=== PATIENT | female | born 1995 | race American Indian/Alaskan Native ===

== ENCOUNTER 2017-08-16 12:08 | Inpatient (IN) | payer MEDICAID ==
[2017-08-16] MEDS ORDERED: LACTATED RINGERS 1,000 ML ONE (13:10)
[2017-08-16] MEDS ORDERED: TYLENOL PO PRN (13:11)
--- NOTE | 2017-08-16 13:22 | History and Physical Report ---
History of Present Illness Date of examination: 08/16/17 Date of admission: 08/16/17 12:08 Chief complaint: Oligohydramnios History of present illness: Patient is a 21 year old female , LMP 01/04/17, EDC 10/11/17 who is a 32 weeks gestation. She was sent from [facility] for oligohydramnios. She is a [facility] patient and has been having weekly NST for morbid obesity. Today, she was there for an NST and BPP which was 6/10 (-2 for KATINA and -2 for NST). She denies any contractions or fluid leakage. She reports good movement. Past History Past Medical History: other (Morbid Obesity) Past Surgical History: no surgical history Social history: no significant social history - Obstetrical History Expected Date of Delivery: 10/11/17 Actual Gestation: 32 Week(s) 0 Day(s) : 1 Para: 0 Medications and Allergies Allergies Allergy/AdvReac Type Severity Reaction Status Date / Time No Known Allergies Allergy Unverified 08/16/17 13:14 - Vital Signs Vital signs: Vital Signs Pulse BP 103 H 127/76 08/16/17 12:32 08/16/17 12:32 Temp Pulse Resp BP Pulse Ox 103 H 127/76 08/16/17 12:32 08/16/17 12:32 - Physical Exam Cardiovascular: Normal S1, Normal S2 Lungs: Positive: Clear to auscultation Vulva: both: normal Deep Tendon Reflex Grade: Normal +2 - Obstetrical FHR: category 1 Uterine Contraction Monitor Mode: External Results All other labs normal. Assessment and Plan - Patient Problems (1) 32 weeks gestation of Current Visit: Yes Status: Acute (2) Oligohydramnios antepartum Current Visit: Yes Status: Acute Plan to address problem: Admit to Floor. and toco mionitoring. Routine labs. IV fluid. Celestone for FLM. BPP tomorrow (3) Morbid obesity due to excess calories Current Visit: Yes Status: Acute
[2017-08-16] MEDS: LACTATED RINGERS 1,000 ML IV SCH (14:27)
[2017-08-16] MEDS: CELESTONE SOLUSPAN IM SCH (15:03)
--- NOTE | 2017-08-17 09:25 | Progress Note ---
Assessment and Plan - Patient Problems (1) 32 weeks gestation of Current Visit: Yes Status: Acute (2) Oligohydramnios antepartum Current Visit: Yes Status: Acute Plan to address problem: Continue and toco monitoring. Continue IV fluid. Celestone for FLM started. BPP today. (3) Morbid obesity due to excess calories Current Visit: Yes Status: Acute Subjective - Subjective Date of service: 08/17/17 Principal diagnosis: Oligohydromnios Interval history: Patient is a 21 year old female , LMP 01/04/17, EDC 10/11/17 who is a 32 weeks and 1 day gestation. She was sent from [facility] yesterday for oligohydramnios. She is a [facility] patient and has been having weekly NST for morbid obesity. Today, she was there for an NST and BPP which was 6/10 (-2 for KATINA and -2 for NST). She denies any contractions or fluid leakage. She reports good movement. She recieved celestone dose #1 yesterday and she is scheduled for a repeat BPP today. Objective - Vital Signs Vital Signs: Vital Signs - 12hr 08/17/17 08/17/17 07:48 07:52 Temperature 97.7 F Pulse Rate 80 94 H Respiratory 20 Rate Blood Pressure 108/53 Blood Pressure 108/53 [Right] - Exam Cardiovascular: Normal S1, Normal S2 Lungs: Clear to auscultation Vulva: both: normal FHR: category 1 Uterine Contraction Monitor Mode: External Uterine Contraction Pattern: Absent
[2017-08-17] MEDS: LACTATED RINGERS 1,000 ML IV SCH ×2 (09:42→19:58)
[2017-08-17] MEDS ORDERED: PRENATAL VITAMIN PO SCH (10:00)
[2017-08-17] MEDS: CELESTONE SOLUSPAN IM SCH (14:48)
--- NOTE | 2017-08-17 18:22 | Ultrasound Report ---
FINAL REPORT EXAM: US OB BPP WO NON-STRESS HISTORY: oligohydramnios TECHNIQUE: Obstetrical sonographic imaging was performed Comparison: None FINDINGS: Images demonstrate single live intrauterine gestation in vertex presentation. heart rate measures 147 beats per minute. Largest single in the amniotic fluid pocket measures 3.64 centimeters. Biophysical profile score 8/8. IMPRESSION: Biophysical profile score 8/8.
[2017-08-17 19:33] VITALS: BP 123/64
--- NOTE | 2017-08-17 21:00 | Ultrasound Report ---
FINAL REPORT EXAM: US OB LIMITED HISTORY: KATINA TECHNIQUE: Obstetrical sonographic imaging FINDINGS: Single live intrauterine gestation in cephalic presentation. heart rate measures 158 beats per minute. Anterior grade 1 placenta. Calculated KATINA 7.3 centimeters. IMPRESSION: Single live intrauterine gestation in cephalic presentation with anterior grade 1 placenta. heart rate 158 beats per minute. Lowest normal calculated KATINA 7.3 centimeters - borderline oligohydramnios. Findings are called to the referring clinician on 08/17/2017 at 2015 hours and discussed with Carmela Merritt RN.
--- NOTE | 2017-08-17 21:02 | Discharge Summary ---
Providers - Providers Date of Admission: 08/16/17 12:08 Date of discharge: 08/17/17 Attending physician: GABE WAGNER MD Primary care physician: LUCILA LISA Hospitalization Reason for admission: IUP - , observation, other (IUP @ 32 0/7 weeks) Discharge diagnosis: other (IUP @ 32 1/7 weeks) Pertinent studies: Repeat BPP 8/8 with KATINA 7.3 Hospital course: Patient is a 21 year old black female , LMP 01/04/17, EDC 10/11/17 who is at 32 1/7weeks gestation. She was sent from [facility] yesterday for oligohydramnios ( KATINA 5.0). She is a [facility] patient and has been having weekly NST's for morbid obesity. Her BPP was 6/10 (-2 for KATINA and -2 for NST) yesterday. She denies any contractions or fluid leakage and reports good movement. She received Celestone x2 doses and IV hydration, and her repeat BPP today was 8/8 with KATINA 7.3 She will therefore be discharged to home today in good condition, with plans to follow up with [facility] on Sunday August 20, 2017. Condition at discharge: Good Disposition: DC-01 TO HOME OR SELFCARE Plan - Provider Discharge Summary Activity: routine, no sex for 6 weeks, no heavy lifting 4 weeks, no strenuous exercise Diet: routine Instructions: routine Additional instructions: [] Smoking cessation referral if applicable(refer to patient education folder for contact #) [] Refer to [facility] Booklet Call your doctor immediately for: * Fever > 100.5 * Heavy vaginal bleeding ( >1 pad per hour) * Severe persistent headache * Shortness of breath * Reddened, hot, painful area to leg or breast * Drainage or odor from incision. * Keep incision clean and dry at all times and follow doctor's instructions regarding bathing/showering - Follow up plan Follow up: LUCILA LISA MD [Primary Care Provider] - 7 Days GABE WAGNER MD [Staff Physician] - 7 Days ROBERTA LITTLE MD [Staff Physician] - 3 Days
== END 2017-08-17 21:47 | disposition home or self-care (01) | DRG 782 ==
LOC: LD 12:08 → OBSVTOIN 12:08
PROVIDERS: ADMIT Obstetrics & Gynecology; ATTEND Obstetrics & Gynecology
DX: O41.03X0 Oligohydramnios, third trimester, not applicable or unspecified (principal); O99.213 Obesity complicating pregnancy, third trimester; Z3A.32 32 weeks gestation of pregnancy; E66.01 Morbid (severe) obesity due to excess calories; Z68.42 Body mass index [BMI] 45.0-49.9, adult
CPT/HCPCS: 59025; 76815; 76819; 96360; 96361; 96372; G0378; G0379; J0702; J7120

== ENCOUNTER 2017-09-06 13:12 | Outpatient (CLI) | payer MEDICAID ==
[2017-09-06 13:35] VITALS: BP 125/71
[2017-09-06] MEDS ORDERED: LACTATED RINGERS 500 ML IV ONE (13:44)
--- NOTE | 2017-09-06 16:40 | Ultrasound Report ---
FINAL REPORT EXAM: US OB LIMITED HISTORY: mayte TECHNIQUE: Transabdominal OB ultrasound. PRIORS: None currently available. FINDINGS: Single intrauterine . heart rate: 156 BPM. Amniotic fluid index: 13.1 cm. Within normal limits. IMPRESSION: Single live intrauterine .
--- NOTE | 2017-09-06 16:42 | Ultrasound Report ---
FINAL REPORT EXAM: US OB BPP WO NON-STRESS HISTORY: well being TECHNIQUE: Biophysical profile PRIORS: Biophysical profile August 17, 2017. FINDINGS: heart rate: 156 BPM Breathin Gross Body Movements: 2 Tone: 2 Qualitative AFV: 2 IMPRESSION: Biophysical profile score 8/8.
== END 2017-09-06 16:17 | disposition home or self-care (01) ==
LOC: TRG 13:12
PROVIDERS: ATTEND Obstetrics & Gynecology
DX: O47.03 False labor before 37 completed weeks of gestation, third trimester (principal); Z3A.35 35 weeks gestation of pregnancy
CPT/HCPCS: 59025; 76815; 76819; J7120

== ENCOUNTER 2017-09-13 16:55 | Inpatient (IN) | payer MEDICAID ==
[2017-09-13] MEDS ORDERED: ZOFRAN IV PRN (18:00)
[2017-09-13] MEDS ORDERED: STADOL IV PRN (18:00)
[2017-09-13] MEDS ORDERED: XYLOCAINE 2% INFILTRATI ONE (18:00)
[2017-09-13] MEDS ORDERED: PITOCin/NS 20 UNIT/1000ML DRIP 20 UNITS/1,000 ML BAG IV SCH (18:00)
[2017-09-13] MEDS ORDERED: POLYCILLIN/NS 2 GM/100 ML 2 GM/100 ML BAG IV ONE (18:00)
[2017-09-13] MEDS ORDERED: MINERAL OIL PO PRN (18:00)
[2017-09-13] MEDS ORDERED: BRETHINE IVP PRN (18:00)
[2017-09-13] MEDS ORDERED: CERVIDIL VG ONE (18:00)
[2017-09-13] MEDS ORDERED: ePHEDrine SULFATE IV PRN (18:00)
[2017-09-13] MEDS ORDERED: NARCAN 0.4 MG/1 ML IV PRN (18:00)
[2017-09-13] MEDS ORDERED: BRETHINE SUB-Q PRN (18:00)
--- NOTE | 2017-09-13 18:09 | History and Physical Report ---
History of Present Illness Date of examination: 09/13/17 Chief complaint: Presents from [facility] with a recommendation for induction of labor due to a non- reactive NST. History of present illness: Early entry to care, co-managed with [facility] due to morbid obesity. course complicated by a UTI, Vitamin D Deficiency,and Anemia. Past History Past Medical History: no pertinent history Past Surgical History: no surgical history Family/Genetic History: none Social history: no significant social history, single - Obstetrical History Expected Date of Delivery: 10/11/17 Actual Gestation: 36 Week(s) 0 Day(s) : 1 Medications and Allergies Allergies Allergy/AdvReac Type Severity Reaction Status Date / Time No Known Allergies Allergy Unverified 08/16/17 13:14 Home Medications Medication Instructions Recorded Confirmed Last Taken Type No Known Home Medications [No 08/16/17 09/13/17 Unknown History Reported Home Medications] Review of Systems All systems: negative - Vital Signs Vital signs: Vital Signs Pulse BP 87 132/60 09/13/17 17:16 09/13/17 17:16 Temp Pulse Resp BP Pulse Ox 98.7 F 74 18 127/58 09/13/17 17:17 09/13/17 17:48 09/13/17 17:17 09/13/17 17:48 - Physical Exam Breasts: Positive: normal Cardiovascular: Regular rate Lungs: Positive: Clear to auscultation, Normal air movement Abdomen: Positive: normal appearance, soft, normal bowel sounds Genitourinary (Female): Positive: normal external genitalia, normal perenium Uterus: Positive: enlarged Anus/Rectum: Positive: normal perianal skin - Obstetrical FHR: category 1 Uterine Contraction Monitor Mode: External Cervical Dilatation: 0 Uterine Contraction Pattern: Absent Uterine Tone Measurement Phase: Resting Uterine Contraction Intensity: Mild Results All other labs normal. Assessment and Plan A: IUP @ 36 Weeks Category I Tracing Morbid Obesity GBS Unknown P: Admit to L&D per routine orders Cervidil Induction GBS prophylaxis
[2017-09-13 18:10] LABS: Basophils % (Auto) 0.5 % (0.0-1.8); Eosinophils # (Auto) 0.1 K/mm3 (0.0-0.4); Eosinophils % (Auto) 1.6 % (0.0-4.3); Hematocrit 34.4 % (30.3-42.9); Hemoglobin 10.8 gm/dl (10.1-14.3); Lymphocytes # (Auto) 2.1 K/mm3 (1.2-5.4); Lymphocytes % (Auto) 29.8 % (13.4-35.0); Mean Corpuscular HGB Conc 31 % (30-34); Monocytes # (Auto) 0.8 K/mm3 (0.0-0.8); Monocytes % (Auto) 12.3 % (0.0-7.3); Platelet Count 272 K/mm3 (140-440); Red Blood Count 5.08 M/mm3 (3.65-5.03); Red Cell Distribution Width 19.1 % (13.2-15.2)
[2017-09-13 18:16] LABS: Mean Corpuscular Hemoglobin 21 pg (28-32); Mean Corpuscular Volume 68 fl (79-97)
[2017-09-13] MEDS: LACTATED RINGERS 1,000 ML IV SCH (20:15)
[2017-09-13] MEDS ORDERED: POLYCILLIN/NS 1 GM/50 ML 1 GM/50 ML BAG IV SCH (22:02)
[2017-09-14] MEDS ORDERED: PITOCin/NS 30 UNIT/500ML 30 UNITS/500 ML BAG IV SCH (10:00)
--- NOTE | 2017-09-14 10:00 | Progress Note ---
Assessment and Plan - Patient Problems (1) 36 weeks gestation of Current Visit: Yes Status: Acute Plan to address problem: Continue routine labor orders May shower and have liquid diet Start Oxytocin for labor induction, per Dr. Alvarez Once active labor established, start Ampicillin for GBS prophylaxis Anticipate vaginal delivery (2) Morbid obesity due to excess calories Current Visit: Yes Status: Acute (3) Morbid obesity due to excess calories Current Visit: No Status: Acute Subjective - Subjective Date of service: 09/14/17 Principal diagnosis: IUP @ 36weeks 0day, IOL due to NR FHR Interval history: 21yo G 1 P 0 was sent from [facility] 09/13/17 for IOL due to NR FHR. Her course was complicated by morbid obesity, Oligo on 08/16/17 (course of steroid for FLM completed), as well as UTI, Vitamin D deficiency and Anemia. Her KATINA on 09/13/17 was 7.41cm. GBS done 09/06/27 but result still pending. Cervidil was inserted 09/13/17 @ 20:15 and removed 09/14/17 @ 08:30. Patient reports: movement normal, contractions Objective - Vital Signs Vital Signs: Vital Signs - 12hr 09/13/17 09/14/17 09/14/17 22:53 07:10 07:15 Temperature 97.7 F Pulse Rate 85 77 77 Respiratory 18 Rate Blood Pressure 120/57 127/57 Blood Pressure 122/57 [Right] - Exam Cardiovascular: Regular rate, Normal S1, Normal S2, No murmurs Lungs: Clear to auscultation, Normal air movement Abdomen: Present: normal appearance Vulva: both: normal Uterus: Present: normal FHR: category 1 FHR comments: baseline 135, moderate variability, +accels, no decels Uterine Contraction Monitor Mode: External Cervical Dilatation: 1 Cervical Effacement Percentage: 50 station: -3 Uterine Contraction Pattern: Irregular Extremities: normal - Labs Labs: Abnormal Labs 09/13/17 17:35 RBC 5.08 H MCV 68 L MCH 21 L RDW 19.1 H [place] % (Auto) 12.3 H Laboratory Results - last 24 hr 09/13/17 09/13/17 17:35 17:35 WBC 6.9 RBC 5.08 H Hgb 10.8 Hct 34.4 MCV 68 L MCH 21 L MCHC 31 RDW 19.1 H Plt Count 272 Lymph % (Auto) 29.8 [place] % (Auto) 12.3 H Eos % (Auto) 1.6 Baso % (Auto) 0.5 Lymph # 2.1 [place] # 0.8 Eos # 0.1 Baso # 0.0 Seg Neutrophils % 55.8 Seg Neutrophils # 3.9 Blood Type A POSITIVE Antibody Screen Negative
[2017-09-14] MEDS: LACTATED RINGERS 1,000 ML IV SCH ×2 (10:09→18:44)
--- NOTE | 2017-09-14 18:11 | Progress Note ---
Assessment and Plan A: 21-year-old at 36 weeks -Cat 1 tracing P: -Continue present care -Anticipate normal vaginal delivery - Patient Problems (1) 36 weeks gestation of Current Visit: Yes Status: Acute (2) Morbid obesity due to excess calories Current Visit: Yes Status: Acute (3) Oligohydramnios antepartum Current Visit: No Status: Acute Subjective - Subjective Date of service: 09/14/17 Principal diagnosis: IUP @ 36weeks 0day, IOL due to NR FHR Interval history: Patient seen and examined, stable. Cat 1 tracing Currently on Pitocin at 16 MU per minute, she is 3 cm on exam Morbidly Obese, status post SROM, IUPC placed Patient reports: loss of fluid, movement normal, contractions Objective - Vital Signs Vital Signs: Vital Signs - 12hr 09/14/17 09/14/17 09/14/17 07:10 07:15 10:09 Temperature 97.7 F Pulse Rate 77 77 106 H Respiratory 18 Rate Blood Pressure 127/57 Blood Pressure 122/57 [Right] O2 Sat by Pulse 98 Oximetry 09/14/17 09/14/17 09/14/17 10:14 10:19 10:24 Temperature Pulse Rate 95 H 98 H 97 H Respiratory Rate Blood Pressure Blood Pressure [Right] O2 Sat by Pulse 97 98 98 Oximetry 09/14/17 09/14/17 09/14/17 10:29 10:34 10:39 Temperature Pulse Rate 86 86 87 Respiratory Rate Blood Pressure Blood Pressure [Right] O2 Sat by Pulse 99 98 98 Oximetry 09/14/17 09/14/17 09/14/17 10:44 10:49 10:54 Temperature Pulse Rate 90 83 88 Respiratory Rate Blood Pressure Blood Pressure [Right] O2 Sat by Pulse 98 98 98 Oximetry 09/14/17 09/14/17 09/14/17 10:59 11:04 11:09 Temperature Pulse Rate 83 87 83 Respiratory Rate Blood Pressure Blood Pressure [Right] O2 Sat by Pulse 98 98 98 Oximetry 09/14/17 09/14/17 09/14/17 11:14 11:19 11:24 Temperature Pulse Rate 86 83 85 Respiratory Rate Blood Pressure Blood Pressure [Right] O2 Sat by Pulse 98 97 98 Oximetry 09/14/17 09/14/17 09/14/17 11:29 11:34 11:39 Temperature Pulse Rate 85 80 78 Respiratory Rate Blood Pressure Blood Pressure [Right] O2 Sat by Pulse 97 97 97 Oximetry 09/14/17 09/14/17 09/14/17 12:17 12:21 12:22 Temperature 97.4 F L Pulse Rate 80 80 75 Respiratory 18 Rate Blood Pressure 109/60 Blood Pressure 109/60 [Right] O2 Sat by Pulse 98 98 Oximetry 09/14/17 09/14/17 09/14/17 12:26 12:31 12:36 Temperature Pulse Rate 74 73 74 Respiratory Rate Blood Pressure Blood Pressure [Right] O2 Sat by Pulse 97 97 97 Oximetry 09/14/17 09/14/17 09/14/17 12:41 12:46 12:51 Temperature Pulse Rate 69 77 71 Respiratory Rate Blood Pressure Blood Pressure [Right] O2 Sat by Pulse 97 97 98 Oximetry 09/14/17 09/14/17 09/14/17 12:56 13:01 13:06 Temperature Pulse Rate 80 72 89 Respiratory Rate Blood Pressure Blood Pressure [Right] O2 Sat by Pulse 98 98 98 Oximetry 09/14/17 09/14/17 09/14/17 13:11 13:16 13:21 Temperature Pulse Rate 79 85 91 H Respiratory Rate Blood Pressure Blood Pressure [Right] O2 Sat by Pulse 98 99 97 Oximetry 09/14/17 09/14/17 09/14/17 13:26 13:31 13:36 Temperature Pulse Rate 76 74 77 Respiratory Rate Blood Pressure Blood Pressure [Right] O2 Sat by Pulse 98 98 98 Oximetry 09/14/17 09/14/17 09/14/17 13:41 13:46 13:51 Temperature Pulse Rate 78 75 78 Respiratory Rate Blood Pressure Blood Pressure [Right] O2 Sat by Pulse 98 95 98 Oximetry 09/14/17 09/14/17 09/14/17 13:56 14:01 14:06 Temperature Pulse Rate 76 78 91 H Respiratory Rate Blood Pressure Blood Pressure [Right] O2 Sat by Pulse 98 98 98 Oximetry 09/14/17 09/14/17 09/14/17 14:11 14:16 14:21 Temperature Pulse Rate 81 79 78 Respiratory Rate Blood Pressure Blood Pressure [Right] O2 Sat by Pulse 98 98 98 Oximetry 09/14/17 09/14/17 09/14/17 14:31 14:36 14:41 Temperature Pulse Rate 86 84 79 Respiratory Rate Blood Pressure Blood Pressure [Right] O2 Sat by Pulse 96 97 97 Oximetry 09/14/17 09/14/17 09/14/17 14:46 14:51 15:56 Temperature Pulse Rate 79 74 79 Respiratory Rate Blood Pressure Blood Pressure [Right] O2 Sat by Pulse 98 98 96 Oximetry 09/14/17 09/14/17 09/14/17 16:01 16:06 16:11 Temperature Pulse Rate 80 86 81 Respiratory Rate Blood Pressure Blood Pressure [Right] O2 Sat by Pulse 96 97 97 Oximetry 09/14/17 09/14/17 09/14/17 16:16 16:21 16:32 Temperature Pulse Rate 81 80 109 H Respiratory Rate Blood Pressure Blood Pressure [Right] O2 Sat by Pulse 96 97 93 Oximetry 09/14/17 09/14/17 09/14/17 16:33 16:36 16:37 Temperature 98.1 F Pulse Rate 88 83 Respiratory 18 Rate Blood Pressure 116/62 Blood Pressure [Right] O2 Sat by Pulse 96 Oximetry 09/14/17 09/14/17 09/14/17 16:38 16:43 16:48 Temperature Pulse Rate 77 83 81 Respiratory Rate Blood Pressure Blood Pressure [Right] O2 Sat by Pulse 96 97 96 Oximetry 09/14/17 09/14/17 09/14/17 16:53 16:58 17:03 Temperature Pulse Rate 81 83 90 Respiratory Rate Blood Pressure Blood Pressure [Right] O2 Sat by Pulse 96 96 97 Oximetry 09/14/17 09/14/17 09/14/17 17:08 17:13 17:18 Temperature Pulse Rate 79 76 82 Respiratory Rate Blood Pressure Blood Pressure [Right] O2 Sat by Pulse 97 97 97 Oximetry 09/14/17 18:09 Temperature Pulse Rate 86 Respiratory Rate Blood Pressure Blood Pressure [Right] O2 Sat by Pulse 99 Oximetry - Exam FHR: category 1 Cervical Dilatation: 3 station: -2 - Labs Labs: Abnormal Labs 09/13/17 17:35 RBC 5.08 H MCV 68 L MCH 21 L RDW 19.1 H [place] % (Auto) 12.3 H Laboratory Results - last 24 hr 09/13/17 09/13/17 09/13/17 17:35 17:35 17:35 WBC 6.9 RBC 5.08 H Hgb 10.8 Hct 34.4 MCV 68 L MCH 21 L MCHC 31 RDW 19.1 H Plt Count 272 Lymph % (Auto) 29.8 [place] % (Auto) 12.3 H Eos % (Auto) 1.6 Baso % (Auto) 0.5 Lymph # 2.1 [place] # 0.8 Eos # 0.1 Baso # 0.0 Seg Neutrophils % 55.8 Seg Neutrophils # 3.9 RPR Nonreactive Blood Type A POSITIVE Antibody Screen Negative
[2017-09-14] MEDS ORDERED: SUBLIMAZE IV PRN (19:05)
[2017-09-14] MEDS ORDERED: NARCAN 2 MG/2 ML IV PRN (19:36)
--- NOTE | 2017-09-14 19:38 | Anesthesia Consultation ---
Anesthesia Consult and Med Hx Date of service: 09/14/17 - Airway Anesthetic Teeth Evaluation: Good ROM Head & Neck: Adequate Mental/Hyoid Distance: Adequate Mallampati Class: Class II Intubation Access Assessment: Probably Good - Pulmonary Exam CTA: Yes - Cardiac Exam Cardiac Exam: RRR - Pre-Operative Health Status ASA Pre-Surgery Classification: ASA3 Proposed Anesthetic Plan: Epidural, Spinal - Pulmonary Hx Asthma: No COPD: No Hx Pneumonia: No - Cardiovascular System Hx Hypertension: No - Central Nervous System Hx Seizures: No Hx Psychiatric Problems: No - Endocrine Hx Renal Disease: No Hx End Stage Renal Disease: No Hx Hypothyroidism: No Hx Hyperthyroidism: No - Hematic Hx Anemia: No Hx Sickle Cell Disease: No - Other Systems Hx Alcohol Use: No Hx Obesity: Yes (BMI > 40)
[2017-09-14] MEDS ORDERED: fentaNYL-BUPIV 2 MCG/ML-0.125% 200 MCG/100 ML BAG EPIDURAL SCH (20:00)
[2017-09-14] MEDS ORDERED: XYLOCAINE 2% INFILTRATI ONE (21:40)
[2017-09-14] MEDS ORDERED: METHERGINE IM ONE (21:42)
[2017-09-14] MEDS ORDERED: CYTOTEC ONE (21:47)
--- NOTE | 2017-09-14 21:55 | Procedure Note ---
OB Delivery Note - Delivery Date of Delivery: 09/14/17 Surgeon: RADHA SOSA Estimated blood loss: other (400cc) - Vaginal Delivery presentation: vertex Delivery position: OA Delivery induction: none Delivery augmentation: pitocin Delivery monitor: external FHT, external uterine, internal uterine Route of delivery: Delivery placenta: spontaneous Delivery cord: 3 umbilical vessels Episiotomy: none Delivery laceration: 2nd degree Delivery repair: vicryl Anesthesia: local (2% lidocaine) - Infant A at 1 minute: 8 at 5 minutes: 9 Gender: Male (time of delivery was 21:36, infant weight is 5 lbs. 2 oz. or 2330 g)
[2017-09-14] MEDS ORDERED: LANSINOH TP PRN (21:57)
[2017-09-14] MEDS ORDERED: BENADRYL PO PRN (21:57)
[2017-09-14] MEDS ORDERED: ANUCORT-HC PR PRN (21:57)
[2017-09-14] MEDS ORDERED: MILK OF MAGNESIA PO PRN (21:57)
[2017-09-14] MEDS ORDERED: TYLENOL PO PRN (21:57)
[2017-09-14] MEDS ORDERED: TUCKS PAD TP PRN (21:57)
[2017-09-14] MEDS ORDERED: CYTOTEC PR ONE (21:57)
[2017-09-14] MEDS ORDERED: NORCO 5/325 PO PRN (21:57)
[2017-09-14] MEDS ORDERED: PHENERGAN PR PRN (21:57)
[2017-09-14] MEDS ORDERED: METHERGINE IM PRN (21:57)
[2017-09-14] MEDS ORDERED: PHENERGAN PO PRN (21:57)
[2017-09-14] MEDS ORDERED: DULCOLAX PR PRN (21:57)
[2017-09-14] MEDS ORDERED: ZOFRAN IV PRN (21:57)
[2017-09-14] MEDS ORDERED: SENOKOT S PO SCH (22:00)
[2017-09-14] MEDS ORDERED: SODIUM CHLORIDE FLUSH SYRINGE 10 ML IV NR (22:00)
[2017-09-15] MEDS: MOTRIN PO SCH ×4 (04:25→22:30)
[2017-09-15] MEDS ORDERED: BOOSTRIX IM ONE (06:00)
--- NOTE | 2017-09-15 09:50 | Progress Note ---
Assessment and Plan A: PPD #1 - stable P: Discharge in am Subjective - Subjective Date of service: 09/15/17 Principal diagnosis: , IOL Patient reports: appetite normal Foley: doing well Objective - Vital Signs Latest vital signs: Vital Signs Temp Pulse Resp BP BP Pulse Ox 09/15/17 03:48 98.2 F 76 18 114/50 96 09/15/17 00:40 98.5 F 82 18 111/56 09/14/17 23:56 82 123/59 09/14/17 23:41 71 130/71 09/14/17 23:26 71 122/55 09/14/17 23:11 74 136/61 09/14/17 22:56 74 142/60 09/14/17 22:41 78 127/62 09/14/17 22:26 80 129/60 09/14/17 22:11 82 134/60 09/14/17 21:57 83 137/65 09/14/17 18:29 89 98 09/14/17 18:24 84 99 09/14/17 18:19 75 97 09/14/17 18:14 79 99 09/14/17 18:09 86 99 09/14/17 17:18 82 97 09/14/17 17:13 76 97 09/14/17 17:08 79 97 09/14/17 17:03 90 97 09/14/17 16:58 83 96 09/14/17 16:53 81 96 09/14/17 16:48 81 96 09/14/17 16:43 83 97 09/14/17 16:38 77 96 09/14/17 16:37 98.1 F 18 09/14/17 16:36 83 116/62 09/14/17 16:33 88 96 09/14/17 16:32 109 H 93 09/14/17 16:21 80 97 09/14/17 16:16 81 96 09/14/17 16:11 81 97 09/14/17 16:06 86 97 09/14/17 16:01 80 96 09/14/17 15:56 79 96 09/14/17 14:51 74 98 09/14/17 14:46 79 98 09/14/17 14:41 79 97 09/14/17 14:36 84 97 09/14/17 14:31 86 96 09/14/17 14:21 78 98 09/14/17 14:16 79 98 09/14/17 14:11 81 98 09/14/17 14:06 91 H 98 09/14/17 14:01 78 98 09/14/17 13:56 76 98 09/14/17 13:51 78 98 09/14/17 13:46 75 95 09/14/17 13:41 78 98 09/14/17 13:36 77 98 09/14/17 13:31 74 98 09/14/17 13:26 76 98 09/14/17 13:21 91 H 97 09/14/17 13:16 85 99 09/14/17 13:11 79 98 09/14/17 13:06 89 98 09/14/17 13:01 72 98 09/14/17 12:56 80 98 09/14/17 12:51 71 98 09/14/17 12:46 77 97 09/14/17 12:41 69 97 09/14/17 12:36 74 97 09/14/17 12:31 73 97 09/14/17 12:26 74 97 09/14/17 12:22 75 109/60 09/14/17 12:21 80 98 09/14/17 12:17 97.4 F L 80 18 109/60 98 09/14/17 11:39 78 97 09/14/17 11:34 80 97 09/14/17 11:29 85 97 09/14/17 11:24 85 98 09/14/17 11:19 83 97 09/14/17 11:14 86 98 09/14/17 11:09 83 98 09/14/17 11:04 87 98 09/14/17 10:59 83 98 09/14/17 10:54 88 98 09/14/17 10:49 83 98 09/14/17 10:44 90 98 09/14/17 10:39 87 98 09/14/17 10:34 86 98 09/14/17 10:29 86 99 09/14/17 10:24 97 H 98 09/14/17 10:19 98 H 98 09/14/17 10:14 95 H 97 09/14/17 10:09 106 H 98 Intake and Output 09/14/17 09/15/17 09/15/17 22:59 06:59 14:59 Intake Total 1064.400 Output Total 350 Balance 1064.400 -350 Intake: IV 1064.400 Lactated Ringers 1,000 ml 1000 @ 125 mls/hr IV DIRECT RICHARD Rx#:[id number] PITOCin/NS 30 UNIT/500ML 64.400 30 units In 500 ml @ 2 mls/hr IV TITR RICHARD Rx#: [id number] Output: Urine 350 Void 350 Other: Total, Output Amount 350 Estimated Blood Loss 400 - Exam Breasts: Present: deferred Cardiovascular: Present: Regular rate Lungs: Present: Clear to auscultation Abdomen: Present: soft Vulva: both: normal Uterus: Present: fundal height below umbilicus Extremities: Present: normal Deep Tendon Reflex Grade: Normal +2
--- NOTE | 2017-09-15 09:54 | Discharge Summary ---
Providers - Providers Date of Admission: 09/13/17 19:54 Date of discharge: 09/16/17 Attending physician: GABE WAGNER MD Primary care physician: GABE WAGNER MD Hospitalization Reason for admission: induction of labor, other Delivery: Episiotomy: none Laceration: none Other procedures: none complications: none (NRFH @ 36 weeks) Discharge diagnosis: delivery [place] baby: male Condition at discharge: Good Disposition: DC-01 TO HOME OR SELFCARE Plan - Discharge Medications Prescriptions: HYDROcodone/APAP 5-325 [[place] 5/325] 1 each PO Q6HR PRN #10 tablet PRN Reason: Pain Ibuprofen [Motrin 600 MG tab] 600 mg PO Q8H PRN #30 tablet PRN Reason: Pain Multivitamin with Iron [Multivitamins with Iron] 1 each PO DAILY #30 tablet - Provider Discharge Summary Activity: routine, no sex for 6 weeks, no strenuous exercise Diet: routine Instructions: routine Additional instructions: [] Smoking cessation referral if applicable(refer to patient education folder for contact #) [] Refer to [facility] Booklet Call your doctor immediately for: * Fever > 100.5 * Heavy vaginal bleeding ( >1 pad per hour) * Severe persistent headache * Shortness of breath * Reddened, hot, painful area to leg or breast * Drainage or odor from incision. * Keep incision clean and dry at all times and follow doctor's instructions regarding bathing/showering - Follow up plan Follow up: GABE WAGNER MD [Primary Care Provider] - 6 Weeks
[2017-09-15] MEDS: PRENATAL VITAMIN PO SCH (10:17)
[2017-09-15] MEDS: FEOSOL PO SCH ×2 (10:17→22:24)
[2017-09-15] MEDS: COLACE PO SCH ×2 (10:17→22:24)
[2017-09-15 10:40] LABS: Hematocrit 31.8 % (30.3-42.9); Hemoglobin 10.2 gm/dl (10.1-14.3)
[2017-09-16] MEDS: MOTRIN PO SCH ×2 (05:07→12:52)
[2017-09-16] MEDS: COLACE PO SCH (12:51)
[2017-09-16] MEDS: PRENATAL VITAMIN PO SCH (12:51)
[2017-09-16] MEDS: FEOSOL PO SCH (12:52)
[2017-09-16 16:24] VITALS: BP 108/82
== END 2017-09-16 22:40 | disposition home or self-care (01) | DRG 775 ==
LOC: TRG 16:55 → LD 19:54 → OB 09-15 01:13
PROVIDERS: ADMIT Obstetrics & Gynecology; ATTEND Obstetrics & Gynecology
PROC: 10E0XZZ Delivery of Products of Conception, External Approach (ICD-10-PCS; principal; 2017-09-14)
PROC: 0KQM0ZZ Repair Perineum Muscle, Open Approach (ICD-10-PCS; 2017-09-14)
PROC: 10H07YZ Insertion of Other Device into Products of Conception, Via Natural or Artificial Opening (ICD-10-PCS; 2017-09-14)
PROC: 3E033VJ Introduction of Other Hormone into Peripheral Vein, Percutaneous Approach (ICD-10-PCS; 2017-09-14)
DX: O60.14X0 Preterm labor third trimester with preterm delivery third trimester, not applicable or unspecified (principal); E66.01 Morbid (severe) obesity due to excess calories; O76 Abnormality in fetal heart rate and rhythm complicating labor and delivery; O99.214 Obesity complicating childbirth; O41.03X0 Oligohydramnios, third trimester, not applicable or unspecified; O70.1 Second degree perineal laceration during delivery; Z68.42 Body mass index [BMI] 45.0-49.9, adult; Z3A.36 36 weeks gestation of pregnancy; Z37.0 Single live birth
CPT/HCPCS: 36415; 85014; 85018; 85025; 86592; 86850; 86900; 86901; 90471; J0290; J0595; J2210; J2590; J3010; J7120